=== PATIENT | female | born 1995 | race Two or more races ===

== ENCOUNTER 2024-12-04 12:26 | Emergency (ER) | payer BC ==
[~2024-12-04] VITALS: Ht 160 cm; Wt 97.1 kg
[2024-12-04 12:50] VITALS: BP 154/86; PULSE 98; RESP 16; TEMP 98.3; O2SAT 99
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
[2024-12-04] MEDS: KETOROLAC TROMETH 60MG/2ML VIAL IM ONE (13:23)
--- NOTE | 2024-12-04 13:46 | DVH ---
EXAM: XY L SHOULDER 2+ VIEW XRAY CLINICAL INDICATION: CHRONIC PAIN, PAIN INCREASED TODAY TECHNIQUE: XY L SHOULDER 2+ VIEW XRAY Comparison: None FINDINGS/IMPRESSION: There is no evidence of acute fracture or dislocation. The visualized joint space is well maintained. The alignment is anatomical. There is no radiopaque foreign body.
[2024-12-04] MEDS ORDERED: IBUP-1456 PO (14:20)
[2024-12-04] MEDS ORDERED: METH-1182 PO (14:20)
[2024-12-04] MEDS ORDERED: PRED20TA2 PO (14:30)
== END 2024-12-04 14:32 | disposition home or self-care (01) ==
LOC: ER 12:26
DX: M24.812 Other specific joint derangements of left shoulder, not elsewhere classified (principal); F41.9 Anxiety disorder, unspecified
CPT/HCPCS: 73030; 96372; 99283; J1885

== ENCOUNTER → 2024-12-11 | Outpatient (CLI) | payer BC ==
[~2024-12-11] MED LIST: IBUP-1456 PO; PRED20TA2 PO
[2024-12-11 09:30] LABS: Hematocrit 39.5 % (36.0-46.0); Hemoglobin 13.7 g/dL (12.2-16.2); Mean Corpuscular Hgb Conc. 34.7 g/dL (32.0-36.0); Mean Corpuscular Volume 92.2 fL (80.0-100.0); Platelet Count (auto) 353 10^3/uL (140-450); Red Blood Cells 4.29 10^6/uL (4.0-5.20); Red Cell Distribution Width 12.6 % (11.8-14.3)
[2024-12-11 09:33] LABS: Basophils % (manual) 0 (0.0-2.0); Blast Cells 0; Metamyelocytes % 0; Myelocytes % 0; Promyelocytes % 0
[2024-12-11 09:50] LABS: Band Neutrophils % (manual) 1; Eosinophils % (manual) 2 (0-7); Lymphocytes % (manual) 47 (10.0-50.0); Monocytes % (manual) 7 (0-12); Platelet Estimate Adequate; RBC Morphology Normal; Reactive Lymphocytes 5
[2024-12-11 09:56] LABS: Urine Bacteria FEW /hpf (None Seen); Urine Blood Negative /uL (Negative); Urine Budding Yeast OCCASIONAL /hpf (None Seen); Urine Clarity Clear (Clear); Urine Color Light-Yellow (Yellow); Urine Protein, UAD Negative (Negative); Urine Specific Gravity 1.014 (1.001-1.035); Urine Squamous Epithelial Cell FEW /hpf (<5); Urine Urobilinogen Normal (Negative); Urine WBC 11 /HPF (0-5); Urine pH 5.5 (5.0-9.0)
[2024-12-11 10:06] LABS: Alanine Aminotransferase 22 U/L (7-40); Alkaline Phosphatase 61 U/L (46-116); Anion Gap 9 (5-15); Calcium 9.4 mg/dL (8.7-10.4); Carbon Dioxide 26 mmol/L (20-31); Chloride 105 mmol/L (98-107); Glucose 78 mg/dL (74-106); Sodium 140 mmol/L (136-145)
[2024-12-11 10:07] LABS: BUN/Creatinine Ratio 18.4 (10.0-20.0); Blood Urea Nitrogen 14 mg/dL (9-23); LDL Cholesterol 91 mg/dL (< 100); Triglycerides 128 mg/dL (< 150)
[2024-12-11 10:08] LABS: Albumin 4.3 g/dL (3.2-4.8)
[2024-12-11 10:09] LABS: Bilirubin, Total 0.6 mg/dL (0.2-1.0); Cholesterol 182 mg/dL (< 200); Total Protein 7.3 g/dL (5.7-8.2)
[2024-12-11 10:18] LABS: Aspartate Aminotransferase 12 U/L (13-40); HDL Cholesterol 76 mg/dL (40-59); Potassium 3.5 mmol/L (3.5-5.1)
[2024-12-12 07:07] LABS: Anti-Nuclear Antibody Direct Negative (Negative); Anti-dsDNA Antibody 1 IU/mL (0-9); Antiscleroderma-70 Antibody <0.2 AI (0.0-0.9); RNP Antibody 0.2 AI (0.0-0.9); Sjogren's Anti-SS-A Antibody <0.2 AI (0.0-0.9); Sjogren's Anti-SS-B Antibody <0.2 AI (0.0-0.9); Smith Antibody <0.2 AI (0.0-0.9)
[2024-12-12 08:07] LABS: Complement C3 138 mg/dL (82-167); Rheumatoid Arthritis Factor 193.1 IU/mL (<14.0); Thyroid Peroxidase (TPO) Ab 12 IU/mL (0-34)
== END | disposition home or self-care (01) ==
LOC: LAB 08:49
PROVIDERS: ATTEND Nurse Practitioner Family
DX: I10 Essential (primary) hypertension (principal); M25.50 Pain in unspecified joint; E66.9 Obesity, unspecified
CPT/HCPCS: 36415; 80053; 80061; 81001; 82306; 84443; 85007; 85027; 86160; 86225; 86235; 86376; 86431

== ENCOUNTER 2025-04-28 09:13 | Outpatient (CLI) | payer BC ==
[2025-04-28 10:38] LABS: Hematocrit 41.6 % (36.0-46.0); Hemoglobin 14.1 g/dL (12.2-16.2); Mean Corpuscular Hemoglobin 31.2 pg (28.0-32.0); Mean Corpuscular Volume 92.1 fL (80.0-100.0); Nucleated Red Blood Cells % 0.1 %
[2025-04-28 10:59] LABS: Alanine Aminotransferase 31 U/L (7-40); Albumin 4.1 g/dL (3.2-4.8); Alkaline Phosphatase 69 U/L (46-116); Anion Gap 8 (5-15); BUN/Creatinine Ratio 17.1 (10.0-20.0); Blood Urea Nitrogen 12 mg/dL (9-23); Calcium 9.5 mg/dL (8.7-10.4); Carbon Dioxide 25 mmol/L (20-31); Glucose 87 mg/dL (74-106); Potassium 3.8 mmol/L (3.5-5.1); Sodium 141 mmol/L (136-145); Total Protein 6.8 g/dL (5.7-8.2)
[2025-04-28 11:00] LABS: Bilirubin, Total 0.5 mg/dL (0.2-1.0); Chloride 108 mmol/L (98-107)
== END 2025-04-28 19:31 | disposition home or self-care (01) ==
LOC: LAB 09:13
PROVIDERS: ATTEND Internal Medicine Rheumatology
DX: M05.79 Rheumatoid arthritis with rheumatoid factor of multiple sites without organ or systems involvement (principal); R53.83 Other fatigue; Z79.899 Other long term (current) drug therapy
CPT/HCPCS: 36415; 80053; 84443; 85025; 85652; 86141; 86200; 87517; 87902